=== PATIENT | male | born 1975 | race Caucasian/White ===

== ENCOUNTER 2016-10-07 07:04 | Day surgery (SDC) | payer BC, OTHER ==
[2016-09-30 16:02] VITALS: BMI 43.2
[~2016-10-07 07:04] MED LIST: DEXAMETHASONE SOD PHOSPHATE 10 MG/ML 1 ML VIAL IV ONE; FAMOTIDINE 20 MG/2 ML VIAL IV PRN; HEPARIN SODIUM,PORCINE 5,000 UNIT/ML 1 ML VIAL SQ ONE; HYDROmorphone 1 MG/ML 1 ML SYRINGE IVP PRN; LACTATED RINGERS 1,000 ML IV SCH; MIDAZOLAM 2 MG/2 ML VIAL IV PRN; Pre Op ABX Message 1 EACH MISC MISCELLANE ONE
[2016-10-07] MEDS ORDERED: LIDOCAINE 1% 20 ML VIAL (10MG/ML) FOR IV START INTRADERMA ONE (07:25)
--- NOTE | 2016-10-07 08:05 | P.GSHP ---
History of Present Illness H&P Date: 10/07/16 Chief Complaint: Scalp lipoma Patient presents today for excision of lipoma. Having mild discomfort in that area. It is been there for numerous years is been getting larger and he has mild headaches he believes at times related to this. A CAT scan showed what appeared to represent a lipoma. Past Medical History Past Medical History: Asthma, GERD/Reflux, Hyperlipidemia, Hypertension, Osteoarthritis (OA), Sleep Apnea/CPAP/BIPAP Additional Past Medical History / Comment(s): DDD, getting CPAP soon History of Any Multi-Drug Resistant Organisms: None Reported Past Surgical History: Adenoidectomy Past Anesthesia/Blood Transfusion Reactions: No Reported Reaction Past Psychological History: Anxiety Smoking Status: Current every day smoker Past Alcohol Use History: None Reported Additional Past Alcohol Use History / Comment(s): 1ppd for 20 yrs. Past Drug Use History: None Reported - Past Family History Mother Family Medical History: No Reported History Medications and Allergies Home Medications Medication Instructions Recorded Confirmed Type Ascorbic Acid [Vitamin C] 500 mg PO DAILY 09/30/16 09/30/16 History Atorvastatin [Lipitor] 40 mg PO HS 09/30/16 09/30/16 History Escitalopram [Lexapro] 20 mg PO HS 09/30/16 09/30/16 History Ibuprofen [Advil] 200 mg PO Q6HR PRN 09/30/16 09/30/16 History Metoprolol Succinate (ER) [Toprol 50 mg PO DAILY 09/30/16 09/30/16 History Xl] Multivitamin [Men's Multi-Vitamin] 1 each PO DAILY 09/30/16 09/30/16 History Omeprazole 20 mg PO BID 09/30/16 09/30/16 History Allergies Allergy/AdvReac Type Severity Reaction Status Date / Time No Known Allergies Allergy Verified 10/07/16 07:22 Surgical - Exam Vital Signs Temp Pulse Resp BP Pulse Ox 97.0 F L 90 16 147/95 96 10/07/16 07:21 10/07/16 07:21 10/07/16 07:21 10/07/16 07:21 10/07/16 07:21 Physical exam: General: Well-developed, well-nourished HEENT: 4-5 cm subcutaneous soft fleshy mass in the left parietal region, sclerae nonicteric Abdomen: Nontender, nondistended Extremities: No edema Neuro: Alert and oriented Assessment and Plan (1) Lipoma of scalp Narrative/Plan: Proceed with surgical excision of a lipoma. The risks of bleeding, infection, recurrence, other etiologies for the mass were discussed with the patient and his family. He understands and wished to proceed. Status: Acute
[2016-10-07] MEDS ORDERED: ONDANSETRON 4 MG/2 ML VIAL ONE (08:22)
[2016-10-07] MEDS ORDERED: SUCCINYLCHOLINE CHLORIDE VIAL 200 MG/10 ML VIAL IV ONE (08:22)
[2016-10-07] MEDS ORDERED: PROPOFOL 10 MG/ML 20 ML VIAL IV ONE (08:22)
[2016-10-07] MEDS ORDERED: LIDOCAINE 1% INJ 10MG/ML (20 ML MDV) ONE (08:22)
[2016-10-07] MEDS ORDERED: MIDAZOLAM 2 MG/2 ML VIAL ONE (08:22)
[2016-10-07] MEDS ORDERED: fentaNYL (PF) 50 MCG/ML 2 ML AMP ONE (08:22)
[2016-10-07] MEDS ORDERED: BUPIVACAIN-EPI 0.25%-1:200,000 30 ML VIAL SQ ONE ×2 (08:39→08:51)
[2016-10-07] MEDS ORDERED: LACTATED RINGERS 1,000 ML IV ONE (08:52)
[2016-10-07] MEDS ORDERED: BACITRACIN OINT 1 EACH PACKET TOPICAL ONE (08:58)
[2016-10-07 09:16] VITALS: TEMP 97.8
[2016-10-07] MEDS ORDERED: HYDROcodone/APAP 5-325MG 1 EACH TAB PO PRN (09:29)
[2016-10-07] MEDS ORDERED: NALOXONE 0.4 MG/ML 1 ML VIAL IV PRN (09:29)
[2016-10-07 09:31] VITALS: RESP 16
--- NOTE | 2016-10-07 09:32 | P.OP ---
Date of Procedure: 10/07/16 Procedure(s) Performed: PREOPERATIVE DIAGNOSIS: Left scalp lipoma POSTOPERATIVE DIAGNOSIS: Same PROCEDURE: Excision SURGEON: Alan EBL: 20 mL ANESTHESIA: Gen. COMPLICATIONS: None OPERATIVE PROCEDURE: Patient placed in the supine position. The left scalp in the posterior parietal/occipital region and draped in usual sterile fashion. An elliptical incision was made excising a portion of skin overlying the lipomatous mass. The subcutaneous tissues were divided using electrocautery. The lipoma was in the subfascial location. Was excised bluntly. This measured 6 x 5 cm. The cutaneous tissues were closed using 3-0 Vicryl sutures. The skin was closed using a running 4-0 nylon stitch. Sterile dressings were applied. DISPOSITION: Stable to recovery room
[2016-10-07] MEDS ORDERED: HYDROcodone/APAP 5-325MG 1 EACH TAB PO ONE (10:04)
[2016-10-07 10:30] VITALS: BP 109/70; PULSE 91
== END 2016-10-07 10:44 | disposition home or self-care (01) ==
LOC: OR 07:04
PROVIDERS: ATTEND Surgery
DX: D17.0 Benign lipomatous neoplasm of skin and subcutaneous tissue of head, face and neck (principal); K21.9 Gastro-esophageal reflux disease without esophagitis; E78.5 Hyperlipidemia, unspecified; I10 Essential (primary) hypertension; M19.90 Unspecified osteoarthritis, unspecified site; G47.33 Obstructive sleep apnea (adult) (pediatric); F32.9 Major depressive disorder, single episode, unspecified; F41.9 Anxiety disorder, unspecified; F17.200 Nicotine dependence, unspecified, uncomplicated; Z79.899 Other long term (current) drug therapy; J45.909 Unspecified asthma, uncomplicated
CPT/HCPCS: 11426; 12032; 88304; J2250; J0330; J1644; J1100; J2405; J2001; J3010; J2704

== ENCOUNTER 2022-10-17 03:58 | Inpatient (IN) | payer OTHER ==
--- NOTE | 2022-10-17 04:02 | ED ---
Chest Pain HPI - General Stated Complaint: chest pain Time Seen by Provider: 10/17/22 04:02 Source: RN notes reviewed, old records reviewed Limitations: no limitations - History of Present Illness Initial Comments: This is a 47-year-old male to the emergency department for evaluation. Patient presents today for evaluation of chest pain. History of high blood pressure cholesterol. No travel history sick contacts. History of severely hyaline blood pressure with family history of heart disease. Patient coming in with chest pain type symptoms that woke him up from sleep today. He states he got up trying to help her on the house with the baby and began to have some severe tightness in his chest heaviness in his chest up into his chest into his back. Patient 71 chest pain currently here in the emergency room heaviness in the emergency room. Patient was also sweaty and symptoms short of breath prior to arrival. MD Complaint: chest pain -: minutes(s) Onset: during rest, awoke with symptoms Pain Location: substernal Pain Radiation: none Severity: moderate Severity scale (1-10): 6 Quality: tightness Consistency: constant Improves With: nothing Worsens With: nothing Anginal Symptoms: sense of impending doom Other Symptoms: palpitations Treatments Prior to Arrival: none - Related Data Home Medications Medication Instructions Recorded Confirmed Ascorbic Acid [Vitamin C] 500 mg PO DAILY 09/30/16 09/30/16 Atorvastatin [Lipitor] 40 mg PO HS 09/30/16 09/30/16 Escitalopram [Lexapro] 20 mg PO HS 09/30/16 09/30/16 Ibuprofen [Advil] 200 mg PO Q6HR PRN 09/30/16 09/30/16 Metoprolol Succinate (ER) [Toprol 50 mg PO DAILY 09/30/16 09/30/16 Xl] Multivitamin [Men's Multi-Vitamin] 1 each PO DAILY 09/30/16 09/30/16 Omeprazole 20 mg PO BID 09/30/16 09/30/16 Previous Rx's Medication Instructions Recorded Hydrocodone/Acetaminophen [[place] 1 - 2 each PO Q4HR PRN #20 tab 10/07/16 5-325] Allergies Allergy/AdvReac Type Severity Reaction Status Date / Time No Known Allergies Allergy Verified 10/07/16 07:22 Review of Systems ROS Statement: Those systems with pertinent positive or pertinent negative responses have been documented in the HPI. ROS Other: All systems not noted in ROS Statement are negative. EKG Findings - EKG Comments: EKG Findings:: EKG shows sinus rhythm rate of 84 ND 158 QRS 92 QTC 403, EKG is positive for ST elevated MD Past Medical History Past Medical History: Asthma, GERD/Reflux, Hyperlipidemia, Hypertension, Osteoarthritis (OA), Sleep Apnea/CPAP/BIPAP Additional Past Medical History / Comment(s): DDD, getting CPAP soon History of Any Multi-Drug Resistant Organisms: None Reported Past Surgical History: Adenoidectomy Past Anesthesia/Blood Transfusion Reactions: No Reported Reaction Past Psychological History: Anxiety Past Alcohol Use History: None Reported Additional Past Alcohol Use History / Comment(s): 1ppd for 20 yrs. Past Drug Use History: None Reported - Past Family History Mother Family Medical History: No Reported History General Exam General appearance: alert, in no apparent distress, anxious Head exam: Present: atraumatic, normocephalic, normal inspection Eye exam: Present: normal appearance, PERRL, EOMI. Absent: scleral icterus, conjunctival injection, periorbital swelling ENT exam: Present: normal exam, mucous membranes moist Neck exam: Present: normal inspection. Absent: tenderness, meningismus, lymphadenopathy Respiratory exam: Present: normal lung sounds bilaterally. Absent: respiratory distress, wheezes, rales, rhonchi, stridor Cardiovascular Exam: Present: regular rate, normal rhythm, normal heart sounds. Absent: systolic murmur, diastolic murmur, rubs, gallop, clicks GI/Abdominal exam: Present: soft, normal bowel sounds. Absent: distended, tenderness, guarding, rebound, rigid Extremities exam: Present: normal inspection, full ROM, normal capillary refill. Absent: tenderness, pedal edema, joint swelling, calf tenderness Back exam: Present: normal inspection Neurological exam: Present: alert, oriented X3, CN II-XII intact Psychiatric exam: Present: normal affect, normal mood Skin exam: Present: warm, dry, intact, normal color. Absent: rash Course Vital Signs 10/17/22 04:02 Temperature 98.3 F Pulse Rate 82 Respiratory 14 Rate Blood Pressure 179/100 O2 Sat by Pulse 98 Oximetry - Reevaluation(s) Reevaluation #1: 10/17/22 04:13 Medical record is reviewed 10/17/22 04:23 STEMI was paged upon EKGs evaluation Reevaluation #2: 10/17/22 04:23 Patient still chest pain throughout ER stay Reevaluation #3: 10/17/22 04:23 Patient informed results questions answered Reevaluation #4: 10/17/22 04:13 Differential Chest Pain: Stable Angina, Unstable Angina, STEMI, NSTEMI Aortic Dissection, Pneumothorax, Musculoskeletal, Esophageal Spasm GERD, Cholecystitis, Pancreatitis, Zoster, this is not meant to be an all-inclusive list. Reevaluation #5: 10/17/22 04:13 Was pt. sent in by a medical professional or institution? @ -non Did you speak to anyone other than the patient for history? @ 0wife Did you review nursing and triage notes? @ -agree Were old charts reviewed? @ -no Differential Diagnosis? @ -prior EKG interpreted by me (3pts min.)? @ -yes X-rays interpreted by me (1pt min.)? @ -yes CT interpreted by me (1pt min.)? @ -[none] U/S interpreted by me (1pt. min.)? @ -[none] What testing was considered but not performed? (CT, X-rays, U/S, labs)? Why? @ no What meds were considered but not given? Why? @ -[none] Did you discuss the management of the patient with other professionals? @ -no Did you reconcile home meds? @ -[none] Was smoking cessation discussed for >3mins.? @ -[none] Was critical care preformed (if so, how long)? @ -yes Were there social determinants of health that impacted care today? How? (Homelessness, low income, unemployed, alcoholism, drug addiction, transportation, low edu. Level, literacy, decrease access to med. care, [facility], rehab)? @ -no Was there de-escalation of care discussed even if they declined? (Discuss DNR or withdrawal of care, Hospice)? @ -no What co-morbidities impacted this encounter? (DM, HTN, Smoking, COPD, CAD, Cancer, CVA, Hep., AIDS, mental health diagnosis, sleep apnea, morbid obesity)? @ -no Was patient admitted / discharged? @ -admit Undiagnosed new problem with uncertain prognosis? @ -[none] Drug Therapy requiring intensive monitoring for toxicity (Heparin, Nitro, Insulin, Cardizem)? @ -[none] Were any procedures done? @ -[none] Diagnosis/symptom? @ -[default] Acute, or Chronic, or Acute on Chronic? @ -[default] Uncomplicated (without systemic symptoms) or Complicated (systemic symptoms)? @ -[default] Side effects of treatment? @ -[none] Exacerbation, Progression, or Severe Exacerbation] @ -[no] Poses a threat to life or bodily function? @ -yes 10/17/22 04:23 - Consultations Consultation #1: Spoke with cardiology on-call aware of ST elevation MD Consultation #2: Spoke with Dr. Acosta who will admit this patient Chest Pain MDM - MDM 47 male DF for evaluation positive for chest pain family history of heart disease high blood pressure and high cholesterol. No prior chest pain evaluation. Patient presents with chest pain that woke him up from sleep EKG positive for ST elevated MD. Critical Care Time Critical Care Time: Yes Total Critical Care Time: 31 Disposition Clinical Impression: ST elevation myocardial infarction (STEMI), Chest pain Disposition: ADMITTED IP TO THIS HOSP Condition: Serious Is patient prescribed a controlled substance at d/c from ED?: No Referrals: Jean Carlos Acosta Jr, [Primary Care Provider] - 1-2 days Time of Disposition: 04:20
[2022-10-17] MEDS ORDERED: ASPIRIN 81 MG PO STA (04:19)
[2022-10-17] MEDS ORDERED: HEPARIN SODIUM 1,000 UN/ML (10ML VL) IV ONE ×2 (04:19→05:24)
[2022-10-17 04:22] LABS: Basophils # (A) 0.1 k/uL (0-0.2); Basophils % (A) 1 %; Eosinophils # (A) 0.4 k/uL (0-0.7); Eosinophils % (A) 5 %; HCT 41.7 % (39.0-53.0); HGB 15.1 gm/dL (13.0-17.5); Lymphocytes # (A) 2.8 k/uL (1.0-4.8); Lymphocytes % (A) 31 %; MCH 32.5 pg (25.0-35.0); MCHC 36.2 g/dL (31.0-37.0); MCV 89.8 fL (80.0-100.0); Monocytes # (A) 0.4 k/uL (0-1.0); Monocytes % (A) 4 %; Neutrophils # (A) 5.1 k/uL (1.3-7.7); Neutrophils % (A) 57 %; Platelet Count 234 k/uL (150-450); RBC 4.65 m/uL (4.30-5.90); RDW 12.4 % (11.5-15.5); WBC 8.9 k/uL (3.8-10.6)
[2022-10-17] MEDS: HEPARIN SOD,PORK IN 0.45% NACL 25,000 UNIT in 0.45% NACL 1 250ML.BAG IV SCH (04:29)
[2022-10-17 04:30] LABS: INR 0.9 (<1.2); Partial Thromboplastin Time 23.2 sec (22.0-30.0); Prothrombin Time 9.7 sec (9.0-12.0)
[2022-10-17 04:32] LABS: ALT 32 U/L (4-49); AST 24 U/L (17-59); African American GFR (CKD) >90 (>60 ml/min/1.73 sqM); Albumin 4.2 g/dL (3.5-5.0); Alkaline Phosphatase 110 U/L (38-126); Anion Gap 9 mmol/L; Blood Urea Nitrogen 22 mg/dL (9-20); Calcium 9.4 mg/dL (8.4-10.2); Carbon Dioxide 25 mmol/L (22-30); Chloride 106 mmol/L (98-107); Glucose 133 mg/dL (74-99); Lipase 76 U/L (23-300); Magnesium 1.8 mg/dL (1.6-2.3); Non-African American GFR(CKD) >90 (>60 ml/min/1.73 sqM); Potassium 3.4 mmol/L (3.5-5.1); Sodium 140 mmol/L (137-145); Total Bilirubin 0.3 mg/dL (0.2-1.3); Total Protein 7.1 g/dL (6.3-8.2)
--- NOTE | 2022-10-17 04:40 | XR ---
EXAMINATION TYPE: XR chest 1V portable DATE OF EXAM: 10/17/2022 COMPARISON: NONE HISTORY: Chest pain TECHNIQUE: 2 views FINDINGS: Heart size is normal. There is some mild infiltrate at the left lung base. No hilar masses. Mediasti num is normal. The right lung is clear. There are chest leads. IMPRESSION: There is some mild infiltrate and atelectasis left lung base. No heart failure seen.
--- NOTE | 2022-10-17 04:53 | P.CRDCN ---
History of Present Illness History of present illness: HISTORY OF PRESENTING ILLNESS This is a pleasant 42-year-old with past medical history significant for hypertension, tobacco abuse, occasional alcohol use and family history of CAD. 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 He has never had significant chest pain however proximally 2 hours prior to arrival started having chest discomfort. Denies associated nausea, diaphoresis or shortness breath. The pain persisted and therefore can't emergency department. EKG shows ST elevation V2 through the V4. DIAGNOSTICS EKG reveals sinus rhythm, normal axis, ST elevation V2 through V4. Laboratory reviewed, white blood cell count 8.9, the hemoglobin 15.1, potassium 3.4, creatinine 0.9 REVIEW OF SYSTEMS At the time of my exam: CONSTITUTIONAL: Denies fever or chills. CARDIOVASCULAR: +chest pain, no shortness of breath, orthopnea, PND or palpitations. RESPIRATORY: Denies cough. GASTROINTESTINAL: Denies abdominal pain, diarrhea, constipation, nausea or vomiting. MUSCULOSKELETAL: Denies myalgias. NEUROLOGIC: Denies numbness, tingling or weakness. ENDOCRINE: Denies fatigue, weight change, polydipsia or polyurina. GENITOURINARY: Denies burning, hematuria or urgency with micturation. HEMATOLOGIC: Denies history of anemia or bleeding. PHYSICAL EXAMINATION Vital signs reviewed. CONSTITUTIONAL: No apparent distress. HEENT: Head is normocephalic. Pupils are equal, round. Sclerae anicteric. Mucous membranes of the mouth are moist. No JVD. No carotid bruit. CHEST EXAMINATION: Lungs are clear to auscultation. No chest wall tenderness is noted on palpation or with deep breathing. HEART EXAMINATION: Regular rate and rhythm. S1, S2 heard. No murmurs, gallops or rub. ABDOMEN: Soft, nontender. Positive bowel sounds. EXTREMITIES: 2+ peripheral pulses, no lower extremity edema and no calf tenderness. NEUROLOGIC EXAMINATION: Patient is awake, alert and oriented x3. ASSESSMENT 1. Anterior STEMI 2. Tobacco abuse 3. Hypertension 4. Hyperlipidemia 5. Occasional alcohol use 6. Family history of CAD PLAN Discussed recommendations for emergency left heart catheterization and patient is agreeable. Aspirin, heparin, statin, beta simone as tolerated. Check 2-D echo. Further recommendations to follow. Past Medical History Past Medical History: Asthma, GERD/Reflux, Hyperlipidemia, Hypertension, Osteoarthritis (OA), Sleep Apnea/CPAP/BIPAP Additional Past Medical History / Comment(s): DDD, getting CPAP soon History of Any Multi-Drug Resistant Organisms: None Reported Past Surgical History: Adenoidectomy Past Anesthesia/Blood Transfusion Reactions: No Reported Reaction Past Psychological History: Anxiety Past Alcohol Use History: None Reported Additional Past Alcohol Use History / Comment(s): 1ppd for 20 yrs. Past Drug Use History: None Reported - Past Family History Mother Family Medical History: No Reported History Medications and Allergies Home Medications Medication Instructions Recorded Confirmed Type Ascorbic Acid [Vitamin C] 500 mg PO DAILY 09/30/16 09/30/16 History Atorvastatin [Lipitor] 40 mg PO HS 09/30/16 09/30/16 History Escitalopram [Lexapro] 20 mg PO HS 09/30/16 09/30/16 History Ibuprofen [Advil] 200 mg PO Q6HR PRN 09/30/16 09/30/16 History Metoprolol Succinate (ER) [Toprol 50 mg PO DAILY 09/30/16 09/30/16 History Xl] Multivitamin [Men's Multi-Vitamin] 1 each PO DAILY 09/30/16 09/30/16 History Omeprazole 20 mg PO BID 09/30/16 09/30/16 History Hydrocodone/Acetaminophen [[place] 1 - 2 each PO Q4HR PRN #20 tab 10/07/16 Rx 5-325] Allergies Allergy/AdvReac Type Severity Reaction Status Date / Time No Known Allergies Allergy Verified 10/07/16 07:22 Physical Exam Vitals: Vital Signs Temp Pulse Resp BP Pulse Ox 10/17/22 04:02 98.3 F 82 14 179/100 98 Intake and Output 10/16/22 10/16/22 10/17/22 14:59 22:59 06:59 Other: Weight 115.666 kg Results 10/17/22 04:10 10/17/22 04:10 Cardiac Enzymes 10/17/22 Range/Units 04:10 AST 24 (17-59) U/L Coagulation 10/17/22 Range/Units 04:10 PT 9.7 (9.0-12.0) sec APTT 23.2 (22.0-30.0) sec CBC 10/17/22 Range/Units 04:10 WBC 8.9 (3.8-10.6) k/uL RBC 4.65 (4.30-5.90) m/uL Hgb 15.1 (13.0-17.5) gm/dL Hct 41.7 (39.0-53.0) % Plt Count 234 (150-450) k/uL Comprehensive Metabolic Panel 10/17/22 Range/Units 04:10 Sodium 140 (137-145) mmol/L Potassium 3.4 L (3.5-5.1) mmol/L Chloride 106 (98-107) mmol/L Carbon Dioxide 25 (22-30) mmol/L BUN 22 H (9-20) mg/dL Creatinine 0.98 (0.66-1.25) mg/dL Glucose 133 H (74-99) mg/dL Calcium 9.4 (8.4-10.2) mg/dL AST 24 (17-59) U/L ALT 32 (4-49) U/L Alkaline Phosphatase 110 (38-126) U/L Total Protein 7.1 (6.3-8.2) g/dL Albumin 4.2 (3.5-5.0) g/dL Current Medications Generic Name Dose Route Start Last Admin Trade Name Freq PRN Reason Stop Dose Admin Aspirin 325 mg 10/18/22 09:00 Aspirin 325 Mg Tab PO DAILY [facility] Atorvastatin Calcium 80 mg 10/17/22 09:00 Atorvastatin 80 Mg Tab PO DAILY [facility] Heparin Sodium/Sodium Chloride 250 mls @ 10 mls/hr 10/17/22 04:30 10/17/22 04:29 25,000 unit/ Sodium Chloride IV 8.6456 units/kg/hr .Q24H MIREYA 10 mls/hr Administration Protocol 8.6456 UNITS/KG/HR Morphine Sulfate 4 mg 10/17/22 04:19 Morphine Sulfate 4 Mg/Ml Syringe IV Q4HR PRN Chest Pain Intake and Output 10/16/22 10/16/22 10/17/22 14:59 22:59 06:59 Other: Weight 115.666 kg Patient Weight 10/17/22 06:59 Weight 115.666 kg 10/17/22 04:10 10/17/22 04:10
[2022-10-17] MEDS ORDERED: NITROGLYCERIN SL TABS 0.4 MG TAB SUBLINGUAL ONE (04:54)
[2022-10-17] MEDS ORDERED: VERAPAMIL 2.5 MG/ML 2 ML AMP ONE (04:57)
[2022-10-17] MEDS ORDERED: fentaNYL (PF) 50 MCG/ML 2 ML AMP ONE (04:57)
[2022-10-17] MEDS ORDERED: LIDOCAINE 2% (PF) 20 MG/ML 5 ML VIAL SQ ONE (05:00)
[2022-10-17] MEDS ORDERED: fentaNYL (PF) 50 MCG/ML 2 ML AMP IV ONE (05:01)
[2022-10-17] MEDS ORDERED: MIDAZOLAM 2 MG/2 ML VIAL IV ONE (05:01)
[2022-10-17] MEDS ORDERED: VERAPAMIL SYRINGE (5 MG/10 ML) INTRAARTER ONE (05:02)
[2022-10-17] MEDS ORDERED: HEPARIN SODIUM 1,000 UN/ML (10ML VL) ONE (05:05)
[2022-10-17] MEDS: HEPARIN SODIUM 1,000 UN/ML (10ML VL) IV ONE ×3 (05:07→05:35)
[2022-10-17] MEDS ORDERED: PRASUGREL 10 MG TAB ONE (05:12)
[2022-10-17] MEDS ORDERED: PRASUGREL 10 MG TAB PO ONE (05:14)
[2022-10-17] MEDS ORDERED: SODIUM CHLORIDE 0.9% 1,000 ML IV ONE (05:14)
[2022-10-17] MEDS ORDERED: NITROGLYCERIN 1000MCG/10ML SYRINGE INTRACORON ONE ×2 (05:16→05:30)
[2022-10-17] MEDS ORDERED: IOPAMIDOL-370 125ML BTL INJ ONE (05:23)
[2022-10-17] MEDS ORDERED: IOPAMIDOL-370 100ML BTL INJ ONE ×2 (05:27→05:35)
[2022-10-17] MEDS ORDERED: NITROGLYCERIN SL TABS 0.4 MG TAB SUBLINGUAL PRN (05:53)
[2022-10-17] MEDS ORDERED: ATROPINE SULFATE 0.1 MG/ML 10ML SYRINGE IV PRN (05:53)
[2022-10-17] MEDS ORDERED: MAG HYDROX/AL HYDROX/SIMETH 30 ML CUP PO PRN (05:53)
[2022-10-17] MEDS ORDERED: ZOLPIDEM 5 MG TAB PO PRN (05:53)
[2022-10-17] MEDS ORDERED: RX INFO: IV CONTRAST WAS GIVEN 1 EACH MISC MISCELLANE PRN (05:53)
--- NOTE | 2022-10-17 05:53 | P.PRCINT ---
Percutaneous Coronary Int. - Percutaneous Coronary Intervention Percutaneous Coronary Intervention: PROCEDURES PERFORMED: Left heart catheterization, bilateral coronary angiography, PCI mid LAD with 3.0 x 15 mm (post dilated with a 4.0 NC balloon) and 2.75 x 15 mm Xience ISSA INDICATION: Anterior STEMI CONSENT:I have discussed the risks, benefits and alternative therapies for the above-mentioned procedure and for both sedation/analgesia as well as necessary blood product administration, if indicated, as they pertain to this patient. The patient has indicated understanding and acceptance of the risks and procedures discussed. PROCEDURE: After the risks, benefits and alternatives of the above mentioned procedure explained in detail with the patient, informed consent was obtained. Patient was taken to the catheterization lab and prepped and draped in usual fashion. 1% lidocaine was used to anesthetize the right radial artery. A 6- Ukrainian sheath was placed in the right radial artery using modified Seldinger technique. Left coronary angiography was performed with a 6-Ukrainian CLS 3.5 guide. The decision was made to perform PCI of the LAD. A 0.014 BMW wire was advanced in the distal LAD. LAD did not reach the apex with apex being supplied by the PDA. Heparin was given for ACT greater than 250. Balloon angioplasty of the 100% lesion was performed with a 2.5 x 12 mm balloon. Next a 2.75 x 15 mm Xience ISSA was placed in the mid to distal LAD. There was still ongoing EKG changes with chest pain and therefore the decision was made to perform PCI of the more proximal 85% lesion at the level of the diagonal 1 branch. This was predilated with a 3.0 x 12 mm noncompliant balloon. Next a 3.0 x 15mm Xience was placed at the mid LAD jailing the moderate caliber diagonal 1 branch. The proximal portion of the stent was postdilated with a 4.0 x 8 mm noncompliant balloon. The wire was pulled and final angiograms were performed. Preintervention there was 85% mid LAD and 100% mid to distal LAD stenosis with ANNA 0 flow and postintervention there was less than 10% stenosis with ANNA 3 flow. Right coronary angiography was performed with a 5-Ukrainian JR5 catheter in various views. A 5-Ukrainian FR5 catheter was inserted into the left ventricle and pressure measurements were obtained. The right radial sheath was removed and a TR band was placed with hemostasis achieved. The patient tolerated the procedure well. Patient was transported back to the post catheterization holding area in stable condition. Conscious Sedation: Patient was monitored under the direct supervision of vision of myself for conscious sedation using Versed and fentanyl for a total duration of 49 minutes HEMODYNAMICS: Aorta: 127/90 LV: 124/15, LVEDP 24 SELECTIVE CORONARY ARTERIOGRAPHY: LEFT MAIN: The left main is a large caliber vessel which bifurcates into the LAD and circumflex. There is no significant stenosis. LEFT ANTERIOR DESCENDING CORONARY ARTERY: LAD is a large caliber vessel which comes short of the apex and apex supplied by the PDA. There is an 85% stenosis of the mid LAD at the level of the diagonal 1 branch and 100% stenosis of the mid to distal LAD. The distal LAD becomes a small vessel before the apex. LEFT CIRCUMFLEX CORONARY ARTERY: Left circumflex is a moderate caliber vessel without significant stenosis. RIGHT CORONARY ARTERY: The right coronary artery is a large caliber vessel which gives off a PDA and PLV branch and is the dominant vessel. There are mild luminal irregularities. FINAL IMPRESSION: 1. CAD as described above including 85% mid LAD, 100% mid to distal LAD stenosis and otherwise mild luminal irregularities 2. S/p PCI mid LAD with 3.0 x 15 mm (post dilated with a 4.0 NC balloon) and 2.75 x 15 mm Xience ISSA 3. Normal left sided filling pressures PLAN: 1. Aggressive risk factor modification per most recent ACC/AHA guidelines. 2. Continue dual antiplatelets with aspirin and Effient for a total of 12 months 3. Tobacco cessation
[2022-10-17 06:15] LABS: Glucose,Whole Blood 141 mg/dL (70-110)
[2022-10-17] MEDS: SODIUM CHLORIDE 0.9% 1,000 ML in EMPTY BAG 1 BAG IV SCH ×2 (06:45→14:03)
[2022-10-17] MEDS ORDERED: Potassium Replacement Protocol 1 EACH MISC MISCELLANE PRN (08:45)
[2022-10-17] MEDS: POTASSIUM CHLORIDE ER 20 MEQ TAB.ER PO SCH ×2 (10:01→12:08)
[2022-10-17] MEDS: ATORVASTATIN 80 MG TAB PO SCH (10:02)
[2022-10-17] MEDS: METOPROLOL SUCCINATE (ER) 25 MG TAB.ER.24H PO SCH (10:02)
[2022-10-17] MEDS: ASPIRIN 81 MG PO SCH (10:02)
[2022-10-17] MEDS: MORPHINE SULFATE 4 MG/ML SYRINGE IV PRN ×3 (10:03→18:46)
[2022-10-17] MEDS: LOSARTAN 25 MG TAB PO SCH (10:10)
--- NOTE | 2022-10-17 12:18 | PN ---
PROGRESS NOTE SUBJECTIVE: This is a 47-year-old gentleman, who is admitted to hospital with acute anterior wall myocardial infarction, was seen by Dr. Moss, and underwent emergent cardiac catheterization and angioplasty of mid LAD. At the time of my evaluation this morning, he appears comfortable at rest and is free of symptoms. He is on aspirin, Lipitor, Toprol, and Effient. OBJECTIVE: GENERAL: Comfortable at rest. VITAL SIGNS: Stable. CHEST: Reveals good air entry bilaterally. HEART: Reveals first and second heart sounds. No gallop. No murmur. Radial artery access site appears normal. CHEST: Reveals good air entry bilaterally. ABDOMEN: Soft. EXTREMITIES: Did not reveal any edema. Peripheral pulses are felt. LABORATORY DATA: Labs show a hemoglobin of 15, platelet count is 230, potassium is 3.4, creatinine is 0.98. Troponin was negative on his initial presentation. BNP is normal. ASSESSMENT: 1. Acute anterior wall myocardial infarction. 2. History of hypertension. PLAN: I will treat the patient with aspirin, Lipitor, Effient, beta simone, obtain a 2D echo, subcu heparin. He will be in the ICU and will be transferred out tomorrow. We will have an echo done. MMODL / IJN: [id number] /
--- NOTE | 2022-10-17 13:28 | CA ---
Transthoracic Echo Report Name: Lincoln Parsons Age: 47 Gender: M : 1975 Exam Date: 10/17/2022 08:11 Exam Location: [facility] Ht (in): 69 Wt (lb): 243 Ordering Physician: Juan Carlos Moss DO ([email or web address]) Attending/Referring Phys: Non Profit Financial Controller Jesica Gomez RDCS Procedure CPT: Indications: re: STEMI Cardiac Hx: Obesity. Technical Quality: Contrast 1: Total Dose (mL): Contrast 2: Total Dose (mL): MEASUREMENTS (Male / Female) Normal Values 2D ECHO LV Diastolic Diameter PLAX 4.9 cm 4.2 - 5.9 / 3.9 - 5.3 cm LV Systolic Diameter PLAX 4.6 cm IVS Diastolic Thickness 1.1 cm 0.6 - 1.0 / 0.6 - 0.9 cm LVPW Diastolic Thickness 1.3 cm 0.6 - 1.0 / 0.6 - 0.9 cm LV Relative Wall Thickness 0.5 RV Internal Dim ED PLAX 3.8 cm LA Systolic Diameter LX 3.2 cm 3.0 - 4.0 / 2.7 - 3.8 cm LV Diastolic Volume MOD BP 78.3 cm??? 67 - 155 / 56 - 104 cm??? LV Systolic Volume MOD BP 40.7 cm??? 22 - 58 / 19 - 49 cm??? LV Ejection Fraction MOD BP 48.0 % >= 55 % LV Diastolic Volume MOD 4C 70.6 cm??? LV Systolic Volume MOD 4C 33.5 cm??? LV Ejection Fraction MOD 4C 52.6 % LV Diastolic Length 4C 8.4 cm LV Systolic Length 4C 7.6 cm LV Diastolic Volume MOD 2C 81.8 cm??? LV Systolic Volume MOD 2C 46.1 cm??? LV Ejection Fraction MOD 2C 43.6 % LV Diastolic Length 2C 9.1 cm LV Systolic Length 2C 8.3 cm LA Volume 46.5 cm??? 18 - 58 / 22 - 52 cm??? M-MODE Aortic Root Diameter MM 3.6 cm LA Systolic Diameter MM 3.1 cm LA Ao Ratio MM 0.8 MV E Point Septal Separation 0.2 cm DOPPLER MV E' Velocity 5.2 cm/s TR Peak Velocity 100.8 cm/s TR Peak Gradient 4.1 mmHg Right Ventricular Systolic Press 9.1 mmHg FINDINGS Left Ventricle Mildly increased septal wall thickness. Mildly decreased left ventricular ejection fraction. Left ventricular ejection fraction is estimated at 55 %. Distal Septal hypokinesis. Right Ventricle Normal right ventricular size and function. Right ventricular systolic pressure within normal limits. Right Atrium Normal right atrial size. Left Atrium Normal left atrial size. Mitral Valve Structurally normal mitral valve. Aortic Valve Trileaflet aortic valve. Tricuspid Valve Structurally normal tricuspid valve. Pulmonic Valve Structurally normal pulmonic valve. Pericardium Normal pericardium. Aorta Normal size aortic root and proximal ascending aorta. CONCLUSIONS Normal LV systolic function with an ejection fraction of 55% with hypokinesis involving antral septum Previewed by: Dr. Ney Poole MD (Electronically Signed) Final Date: 17 October 2022 13:27
[2022-10-17 14:15] VITALS: BMI 37.6
--- NOTE | 2022-10-17 14:30 | P.HPIM ---
History of Present Illness H&P Date: 10/17/22 Chief Complaint: chest pain Patient presented to the emergency room at the behest of his partner who is a nurse in the emergency room at [facility] for chest pain, This patient was found to be having a myocardial infarction with ST elevation in the emergency room, he was admitted and sent to the cardiac [employer] where he underwent angioplasty with stent placement Review of Systems Constitutional: Reports as per HPI, Reports sweats, Reports weakness Ears, nose, mouth and throat: Reports as per HPI Cardiovascular: Reports as per HPI, Reports chest pain, Reports high blood pressure, Reports shortness of breath Respiratory: Reports congestion (Pack-a-day cigarette smoker) Gastrointestinal: Reports as per HPI Genitourinary: Reports as per HPI Musculoskeletal: Reports as per HPI Integumentary: Reports as per HPI Neurological: Reports as per HPI Psychiatric: Reports as per HPI Past Medical History Past Medical History: Asthma, GERD/Reflux, Hyperlipidemia, Hypertension, Osteoarthritis (OA), Sleep Apnea/CPAP/BIPAP Additional Past Medical History / Comment(s): DDD, getting CPAP soon History of Any Multi-Drug Resistant Organisms: None Reported Past Surgical History: Adenoidectomy Additional Past Surgical History / Comment(s): chest trauma with right chest tube 2018, heart cath Oct 2022 Past Anesthesia/Blood Transfusion Reactions: No Reported Reaction Date of Last Stent Placement:: Oct 2021 Past Psychological History: Anxiety Past Alcohol Use History: None Reported Additional Past Alcohol Use History / Comment(s): 1ppd for 20 yrs. Past Drug Use History: None Reported - Past Family History Mother Family Medical History: No Reported History Medications and Allergies Home Medications Medication Instructions Recorded Confirmed Type Albuterol Sulfate [Ventolin HFA] 1 puff INHALATION RT-Q4H PRN 10/17/22 10/17/22 History Aspirin EC [Ecotrin Low Dose] 81 mg PO DAILY 10/17/22 10/17/22 History Losartan Potassium 50 mg PO DAILY 10/17/22 10/17/22 History amLODIPine [Norvasc] 5 mg PO DAILY 10/17/22 10/17/22 History buPROPion XL [Wellbutrin XL] 150 mg PO DAILY 10/17/22 10/17/22 History clonazePAM [KlonoPIN] 0.5 mg PO HS PRN 10/17/22 10/17/22 History Allergies Allergy/AdvReac Type Severity Reaction Status Date / Time No Known Allergies Allergy Verified 10/17/22 12:10 Physical Exam Osteopathic Statement: *. No significant issues noted on an osteopathic structural exam other than those noted in the History and Physical/Consult. Vitals: Vital Signs Temp Pulse Resp BP Pulse Ox 10/17/22 11:00 82 20 136/97 96 10/17/22 10:00 24 138/89 96 10/17/22 09:00 84 14 136/86 97 10/17/22 08:00 97.7 F 95 15 124/85 97 10/17/22 07:30 85 15 133/93 96 10/17/22 07:15 98.4 F 84 21 128/92 96 10/17/22 06:25 15 10/17/22 06:23 98.4 F 10/17/22 04:02 98.3 F 82 14 179/100 98 Intake and Output 10/16/22 10/17/22 10/17/22 22:59 06:59 14:59 Intake Total 150 230.167 Output Total 450 Balance 150 -219.833 Intake: IV 150 200 Sodium Chloride 0.9% 1, 50 200 000 ml In Empty Bag 1 bag @ 50 mls/hr IV .Q20H MIREYA Rx#:[id number] Intake, IV Titration 30.167 Amount Heparin Sod,Pork in 0.45% 30.167 NaCl 25,000 unit In 0.45 % NaCl 1 250ml.bag @ 8. 6456 UNITS/KG/HR 10 mls/ hr IV .Q24H MIREYA Rx#: [id number] Output: Urine 450 Other: # Voids 1 Weight 115.666 kg General: [Patient awake, alert and oriented times 3. Patient in no acute distress.] HEENT: [PERRL. EOMI. No pharyngeal erythema or exudate.] Neck: [No adenopathy.] Cardiac: [Heart regular in rate and rhythm. No S3. No S4. No clicks, rubs. No murmur.] Lungs: [Clear to auscultation bilaterally.] Abdomen: [No mass. No organomegaly. Bowel sounds presnt and normoactive in all 4 quadrants.] Extremes: [No edema no cyanosis no claudication normal pulses] : [] Musculoskeletal: [No joint erythema, edema or tenderness.] Skin: [No rash.] Neurologic: [No lateralizing deficits. CN II - XII grossly intact.] Lymphatic: [No adenopathy.] Results CBC & Chem 7: 10/17/22 04:10 10/17/22 04:10 Labs: Abnormal Lab Results - Last 24 Hours (Table) 10/17/22 10/17/22 10/17/22 Range/Units 04:10 06:03 10:10 Potassium 3.4 L (3.5-5.1) mmol/L BUN 22 H (9-20) mg/dL Glucose 133 H (74-99) mg/dL POC Glucose (mg/dL) 141 H (70-110) mg/dL Troponin I 6.050 H* (0.000-0.034) ng/mL Thrombosis Risk Factor Assmnt - DVT/VTE Prophylaxis DVT/VTE Prophylaxis: Contraindicated - See note (Admitted with STEMI) - Choose All That Apply Each Factor Represents 1 point: Acute LA, Age 41-60 years Other Risk Factors: No Other congenital or acquired thrombophilia - If yes, enter type in comment: No Thrombosis Risk Factor Assessment Total Risk Factor Score: 2 Thrombosis Risk Factor Assessment Level: Low Risk Assessment and Plan (1) Chest pain Current Visit: Yes Status: Acute Code(s): R07.9 - CHEST PAIN, UNSPECIFIED SNOMED Code(s): 14765619 (2) ST elevation myocardial infarction (STEMI) Current Visit: Yes Status: Acute Code(s): I21.3 - ST ELEVATION (STEMI) MYOCARDIAL INFARCTION OF UNSP SITE SNOMED Code(s): 89818725 (3) Lipoma of scalp Current Visit: No Status: Acute Code(s): D17.0 - HILARY LIPOMATOUS NEOPLM OF SKIN, SUBCU OF HEAD, FACE AND NECK SNOMED Code(s): 37483843 Plan: Patient admitted to the hospital When directly to the cardiac [employer] Underwent percutaneous angioplasty with drug-eluting stent placement In the intensive care unit recovering well We'll reevaluate in the morning Time with Patient: Greater than 30
[2022-10-17] MEDS: clonazePAM 0.5 MG TAB PO PRN (20:27)
[2022-10-17] MEDS: HYDROcodone/APAP 5-325MG 1 EACH TAB PO PRN (20:30)
[2022-10-18] MEDS: HYDROcodone/APAP 5-325MG 1 EACH TAB PO PRN ×4 (01:32→20:20)
[2022-10-18] MEDS: HEPARIN SOD,PORK IN 0.45% NACL 25,000 UNIT in 0.45% NACL 1 250ML.BAG IV SCH (03:34)
[2022-10-18 06:03] LABS: HCT 41.2 % (39.0-53.0); HGB 14.5 gm/dL (13.0-17.5); MCH 31.7 pg (25.0-35.0); MCHC 35.1 g/dL (31.0-37.0); MCV 90.3 fL (80.0-100.0); Mean Platelet Volume 7.7; Platelet Count 245 k/uL (150-450); RBC 4.56 m/uL (4.30-5.90); RDW 12.3 % (11.5-15.5); WBC 12.2 k/uL (3.8-10.6)
[2022-10-18 06:14] LABS: African American GFR (CKD) >90 (>60 ml/min/1.73 sqM); Anion Gap 8 mmol/L; Blood Urea Nitrogen 13 mg/dL (9-20); Calcium 8.7 mg/dL (8.4-10.2); Carbon Dioxide 23 mmol/L (22-30); Chloride 105 mmol/L (98-107); Glucose 102 mg/dL (74-99); Non-African American GFR(CKD) >90 (>60 ml/min/1.73 sqM); Potassium 4.2 mmol/L (3.5-5.1); Sodium 136 mmol/L (137-145)
[2022-10-18] MEDS: LOSARTAN 25 MG TAB PO SCH (08:27)
[2022-10-18] MEDS: ATORVASTATIN 80 MG TAB PO SCH (08:27)
[2022-10-18] MEDS: ASPIRIN 81 MG PO SCH (08:27)
[2022-10-18] MEDS: PRASUGREL 10 MG TAB PO SCH (08:27)
[2022-10-18] MEDS: METOPROLOL SUCCINATE (ER) 25 MG TAB.ER.24H PO SCH (08:27)
[2022-10-18] MEDS ORDERED: ASPIRIN 325 MG TAB PO SCH (09:00)
[2022-10-18 09:27] LABS: Chol/HDL Ratio 6.92 Ratio; VLDL Calculation 215.8 mg/dL (5.00-40.00)
[2022-10-18 11:20] LABS: LDL Cholesterol,Direct Reflex 96.7 mg/dL (0.00-129.00)
[2022-10-18] MEDS: ISOSORBIDE MONONITRATE ER 30 MG TAB.ER.24H PO SCH (12:22)
--- NOTE | 2022-10-18 13:25 | PN ---
PROGRESS NOTE SUBJECTIVE: A 47-year-old gentleman, who was admitted to hospital with acute anterior wall myocardial infarction, underwent emergent cardiac catheterization and angioplasty of the LAD. He has a sharp atypical chest discomfort, but hemodynamically stable and he is doing well otherwise. EKG appears normal. He is currently on aspirin, Lipitor, Cozaar, and Toprol-XL along with Effient. An echocardiogram showed preserved LV function with septal hypokinesis. ASSESSMENT: Acute anterior wall myocardial infarction. PLAN: The patient is doing well. He will continue with current medications. Hopefully, the patient will be discharged home on Wednesday. I will add Imdur 30 mg daily. MMODL / IJN: [id number] /
--- NOTE | 2022-10-18 13:49 | P.PN ---
Subjective Progress Note Date: 10/18/22 Principal diagnosis: STEMI, chest pain Patient developed chest pain presented to the emergency room where he went directly to the cardiac field laboratory operator where he underwent percutaneous angioplasty with stent placement. This patient is awake alert oriented 3 vital signs stable patient is a afebrile Objective - Vital Signs Vital signs: Vital Signs Temp 98.0 F 10/18/22 12:00 Pulse 90 10/18/22 12:00 Resp 26 H 10/18/22 12:00 BP 150/102 10/18/22 12:00 Pulse Ox 98 10/18/22 12:00 FiO2 Intake & Output 10/17/22 10/18/22 10/18/22 18:59 06:59 18:59 Intake Total 430.167 120 Output Total 450 0 Balance -19.833 120 0 Weight 115.666 kg 119.3 kg Intake: IV 400 Sodium Chloride 0.9% 1, 400 000 ml In Empty Bag 1 bag @ 50 mls/hr IV .Q20H MIREYA Rx#:[id number] Intake, IV Titration 30.167 Amount Heparin Sod,Pork in 0.45% 30.167 NaCl 25,000 unit In 0.45 % NaCl 1 250ml.bag @ 8. 6456 UNITS/KG/HR 10 mls/ hr IV .Q24H MIREYA Rx#: [id number] Oral 120 Output: Urine 450 0 Other: Voiding Method Toilet Toilet Toilet Urinal Urinal # Voids 0 0 0 - Exam General: [Patient awake, alert and oriented times 3. Patient in no acute distress.] HEENT: [PERRL. EOMI. No pharyngeal erythema or exudate.] Neck: [No adenopathy.] Cardiac: [Heart regular in rate and rhythm. No S3. No S4. No clicks, rubs. No murmur.] Lungs: [Clear to auscultation bilaterally.] Abdomen: [No mass. No organomegaly. Bowel sounds presnt and normoactive in all 4 quadrants.] Extremes: [No edema no cyanosis no claudication normal pulses] : Normal male genitalia Musculoskeletal: [No joint erythema, edema or tenderness.] Skin: [No rash.] Neurologic: [No lateralizing deficits. CN II - XII grossly intact.] Lymphatic: [No adenopathy.] - Labs CBC & Chem 7: 10/18/22 05:45 10/18/22 05:45 Labs: Abnormal Lab Results - Last 24 Hours (Table) 10/18/22 10/18/22 10/18/22 Range/Units 05:45 05:45 05:45 WBC 12.2 H (3.8-10.6) k/uL Sodium 136 L (137-145) mmol/L Glucose 102 H (74-99) mg/dL Triglycerides 1079.00 H (0.00-149.00) mg/dL Cholesterol 270.00 H (0.00-200.00) mg/dL VLDL Cholesterol, Calc 215.80 H (5.00-40.00) mg/dL HDL Cholesterol 39.00 L (40.00-60.00) mg/dL Assessment and Plan (1) Chest pain Current Visit: Yes Status: Acute Code(s): R07.9 - CHEST PAIN, UNSPECIFIED SNOMED Code(s): 14711868 (2) ST elevation myocardial infarction (STEMI) Current Visit: Yes Status: Acute Code(s): I21.3 - ST ELEVATION (STEMI) MYOCARDIAL INFARCTION OF UNSP SITE SNOMED Code(s): 34918469 (3) Lipoma of scalp Current Visit: No Status: Acute Code(s): D17.0 - HILARY LIPOMATOUS NEOPLM OF SKIN, SUBCU OF HEAD, FACE AND NECK SNOMED Code(s): 33796956 Plan: Patient admitted to the hospital When directly to the cardiac Cotton Buyer Underwent percutaneous angioplasty with drug-eluting stent placement In the intensive care unit recovering well We'll reevaluate in the morning Time with Patient: Greater than 30
[2022-10-18] MEDS: buPROPion XL 150 MG TAB.ER.24H PO SCH (14:45)
[2022-10-18] MEDS: clonazePAM 0.5 MG TAB PO PRN (20:20)
[2022-10-18] MEDS: SODIUM CHLORIDE 0.9% 1,000 ML in EMPTY BAG 1 BAG IV SCH (21:16)
[2022-10-19 06:51] LABS: Platelet Count 217 k/uL (150-450)
[2022-10-19 07:11] LABS: African American GFR (CKD) >90 (>60 ml/min/1.73 sqM); Anion Gap 6 mmol/L; Blood Urea Nitrogen 13 mg/dL (9-20); Calcium 8.5 mg/dL (8.4-10.2); Carbon Dioxide 24 mmol/L (22-30); Chloride 107 mmol/L (98-107); Glucose 96 mg/dL (74-99); Non-African American GFR(CKD) >90 (>60 ml/min/1.73 sqM); Potassium 4.2 mmol/L (3.5-5.1); Sodium 137 mmol/L (137-145)
[2022-10-19] MEDS: ATORVASTATIN 80 MG TAB PO SCH (08:18)
[2022-10-19] MEDS: METOPROLOL SUCCINATE (ER) 50 MG TAB.ER.24H PO SCH (08:18)
[2022-10-19] MEDS: buPROPion XL 150 MG TAB.ER.24H PO SCH (08:18)
[2022-10-19] MEDS: LOSARTAN 50 MG TAB PO SCH (08:18)
[2022-10-19] MEDS: ISOSORBIDE MONONITRATE ER 30 MG TAB.ER.24H PO SCH (08:18)
[2022-10-19] MEDS: ASPIRIN 81 MG PO SCH (08:18)
[2022-10-19] MEDS ORDERED: ISOSORBIDE MONONITRATE ER 30 MG TAB.ER.24H PO SCH (09:00)
[2022-10-19] MEDS: PRASUGREL 10 MG TAB PO SCH (09:30)
[2022-10-19] MEDS: FENOFIBRATE 54 MG TAB PO SCH (09:30)
[2022-10-19] MEDS: HYDROcodone/APAP 5-325MG 1 EACH TAB PO PRN ×2 (11:17→20:36)
--- NOTE | 2022-10-19 12:39 | P.PN ---
Subjective Progress Note Date: 10/19/22 History of present illness: This is a 47-year-old male presented to the hospital with acute anterior wall myocardial infarctions status post emergent cardiac catheterization and angioplasty of the LADwith Dr. Moss on 10/17. He is currently on aspirin, Lipitor, Cozaar, Toprol-XL, Effient and Imdur was started yesterday. Yesterday, patient was complaining of sharp atypical chest discomfort but denies any today. He denies shortness of breath. Echocardiogram revealed normal LV systolic function with EF of 55%. Triglycerides 1079, cholesterol 270, HDL 39. Potassium 4.2, BUN 13 and creatinine 0.92. 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 Echocardiogram revealed EF of 55%. Physical examination: Gen: This is a 47-year-old male. He is resting in bed and appears to be comfortable and in no acute distress VS: reviewed HEENT: Head is atraumatic, normocephalic. Pupils equal, round. Sclerae is anicteric. NECK: Supple. No JVD. No lymphadenopathy. No thyromegaly. LUNGS: Clear to auscultation. No wheezes or rhonchi. No intercostal retractions. HEART: Regular rate and rhythm. No murmur. ABDOMEN: Soft. Bowel sounds are present. No masses. No tenderness. EXTREMITIES: No pedal edema. No calf tenderness. NEUROLOGICAL: Patient is awake, alert and oriented x3. Cranial nerves 2 through 12 are grossly intact. Assessment: Acute anterior wall myocardial infarction status post cardiac catheterization and angioplasty of the LAD 10/17 Hypertension Severe hypertriglyceridemia Plan: Start patient on fenofibrate 54 mg daily Continue atorvastatin, aspirin, Imdur, Toprol-XL increased to 50 mg daily and continue patient on Effient Nurse practitioner note has been reviewed, I agree with documented findings and plan of care. Patient was seen and examined. Objective - Vital Signs Vital signs: Vital Signs Temp 99.6 F 10/19/22 04:00 Pulse 96 10/19/22 04:00 Resp 16 10/19/22 04:00 BP 132/87 10/19/22 04:00 Pulse Ox 96 10/19/22 04:00 FiO2 Intake & Output 10/18/22 10/19/22 10/19/22 18:59 06:59 18:59 Intake Total 240 Output Total 0 0 Balance 0 240 Intake: Oral 240 Output: Urine 0 0 Other: Voiding Method Toilet Toilet # Voids 0 0 - Labs CBC & Chem 7: 10/19/22 06:00 10/19/22 06:00 Labs: Abnormal Lab Results - Last 24 Hours (Table) 10/18/22 Range/Units 05:45 Triglycerides 1079.00 H (0.00-149.00) mg/dL Cholesterol 270.00 H (0.00-200.00) mg/dL VLDL Cholesterol, Calc 215.80 H (5.00-40.00) mg/dL HDL Cholesterol 39.00 L (40.00-60.00) mg/dL
--- NOTE | 2022-10-19 14:13 | P.PN ---
Subjective Progress Note Date: 10/19/22 This is a 47-year-old gentleman with acute anterior wall STEMI status post emergent cardiac catheterization, PTCA with PCI of LAD. Patient complained of chest pain yesterday. Imdur and Effient added to med regimen. Denies chest pain, palpitations or shortness of breath this morning. Ambulating with in room, tolerating exertion well. Hypertensive mild tachycardia this morning. Telemetry sinus rhythm with mild tachycardia. Beta simone dose increased. Triglycerides 1079 (hemoglobin A1c ordered), cholesterol 270, LDL 96.7, HDL 39. Maintaining O2 sats in the 90s on room air. Objective - Vital Signs Vital signs: Vital Signs Temp 98.5 F 10/19/22 08:23 Pulse 103 H 10/19/22 08:23 Resp 18 10/19/22 08:23 BP 167/109 10/19/22 08:23 Pulse Ox 94 L 10/19/22 08:23 FiO2 Intake & Output 10/18/22 10/19/22 10/19/22 18:59 06:59 18:59 Intake Total 240 0 Output Total 0 0 Balance 0 240 0 Intake: Oral 240 0 Output: Urine 0 0 Other: Voiding Method Toilet Toilet Toilet # Voids 0 0 - Exam PHYSICAL EXAM: VITAL SIGNS: [As above] GENERAL: Alert and oriented 3, Sitting up in bed, no acute distress HEENT: Conjunctivae normal. eyes normal. NECK: Supple, No JVD. CARDIOVASCULAR: S1, S2 regular. No murmur. RESPIRATION: Unlabored, CTA,Breath sounds diminished in the bases. ABDOMEN: Soft, nondistended, nontender . No guarding. no masses palpable.Positive bowel sounds. LEGS: No edema. no swelling NERVOUS SYSTEM: Cranial N 2-12 grossly normal. No focal deficits. Strength and sensation grossly intact. Skin: Warm and dry, no rash. - Labs CBC & Chem 7: 10/19/22 06:00 10/19/22 06:00 Assessment and Plan Assessment: (1) Chest pain, Acute anterior ST elevation myocardial infarction (STEMI) status post cardiac cath., stenting of the LAD. Current Visit: Yes Status: Acute Code(s): I21.3 - ST ELEVATION (STEMI) MYOCARDIAL INFARCTION OF [facility] SITE SNOMED Code(s): 46776505 (2)hypertriglyceridemia, severe, 1079. hemoglobin A1c pending. (3) hypercholesterolemia (4) morbid obesity 38.8 (5) obstructive sleep apnea, uses CPAP (6) nicotine dependence, 1 pack per day 20 years (7) Lipoma of scalp Current Visit: No Status: Acute Code(s): D17.0 - HILARY LIPOMATOUS NEOPLM OF SKIN, SUBCU OF HEAD, FACE AND NECK SNOMED Code(s): 19146568 Plan: Continue on current medication regime ,monitoring and symptomatic treatment. Severe hypertriglyceridemia, and hemoglobin A1c ordered.Continues on beta simone, statin, aspirin, Imdur, Effient. Beta simone dose increased, close monitoring of HR. Lofibra added to med regimine. Increase ambulation as tolerated. Smoking sensation reinforced. Discharge planning in progress for tomorrow pending final DC recommendations and clearance prior cardiology. The impression and plan of care has been dictated as directed. : I performed a history and examination of this patient, discussed the same with the dictator. I agree with the dictator's note ,documented as a scribe. Any additional findings or plans will be noted.
[2022-10-19] MEDS: SODIUM CHLORIDE 0.9% 1,000 ML in EMPTY BAG 1 BAG IV SCH (16:46)
[2022-10-19 19:45] VITALS: RESP 16
[2022-10-19] MEDS: clonazePAM 0.5 MG TAB PO PRN (20:37)
[2022-10-20] MEDS: FENOFIBRATE 54 MG TAB PO SCH (08:09)
[2022-10-20] MEDS: METOPROLOL SUCCINATE (ER) 50 MG TAB.ER.24H PO SCH (08:09)
[2022-10-20] MEDS: ATORVASTATIN 80 MG TAB PO SCH (08:09)
[2022-10-20] MEDS: ASPIRIN 81 MG PO SCH (08:10)
[2022-10-20] MEDS: ISOSORBIDE MONONITRATE ER 30 MG TAB.ER.24H PO SCH (08:10)
[2022-10-20] MEDS: LOSARTAN 50 MG TAB PO SCH (08:10)
[2022-10-20] MEDS: PRASUGREL 10 MG TAB PO SCH (08:10)
[2022-10-20] MEDS: buPROPion XL 150 MG TAB.ER.24H PO SCH (08:10)
[2022-10-20 08:13] VITALS: BP 138/95; PULSE 97; TEMP 98.5
[2022-10-20] MEDS ORDERED: METOPROLOL SUCCINATE (ER) 50 MG TAB.ER.24H PO STA (08:36)
--- NOTE | 2022-10-20 10:33 | P.PN ---
Subjective Progress Note Date: 10/20/22 History of present illness: This is a 47-year-old male presented to the hospital with acute anterior wall myocardial infarctions status post emergent cardiac catheterization and angioplasty of the LADwith Dr. Moss on 10/17. He is currently on aspirin, Lipitor, Cozaar, Toprol-XL, Effient and Imdur was started yesterday. Yesterday, patient was complaining of sharp atypical chest discomfort but denies any today. He denies shortness of breath. Echocardiogram revealed normal LV systolic function with EF of 55%. Triglycerides 1079, cholesterol 270, HDL 39. Potassium 4.2, BUN 13 and creatinine 0.92. 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 Echocardiogram revealed EF of 55%. 10/20 Patient denies any chest pain or shortness of breath. His heart rate is running in the 90s. Telemetry sinus rhythm. Blood pressure 138/95. Potassium 4.2, BUN 13 and creatinine 0.92. Physical examination: Gen: This is a 47-year-old male. He is resting in bed and appears to be comfortable and in no acute distress VS: reviewed HEENT: Head is atraumatic, normocephalic. Pupils equal, round. Sclerae is anicteric. NECK: Supple. No JVD. No lymphadenopathy. No thyromegaly. LUNGS: Clear to auscultation. No wheezes or rhonchi. No intercostal retractions. HEART: Regular rate and rhythm. No murmur. ABDOMEN: Soft. Bowel sounds are present. No masses. No tenderness. EXTREMITIES: No pedal edema. No calf tenderness. NEUROLOGICAL: Patient is awake, alert and oriented x3. Cranial nerves 2 through 12 are grossly intact. Assessment: Acute anterior wall myocardial infarction status post cardiac catheterization and angioplasty of the LAD 10/17 Hypertension Severe hypertriglyceridemia Plan: Continue patient on fenofibrate 54 mg daily Continue atorvastatin, aspirin, Imdur, Effient Toprol-XL will be increased to 100 mg daily Patient is cleared for discharge from cardiology. Patient will follow-up with Dr. Moss in 1-2 weeks. Nurse practitioner note has been reviewed, I agree with documented findings and plan of care. Patient was seen and examined. Objective - Vital Signs Vital signs: Vital Signs Temp 98.5 F 10/20/22 08:12 Pulse 97 10/20/22 08:12 Resp 16 10/20/22 08:12 BP 138/95 10/20/22 08:12 Pulse Ox 95 10/20/22 08:12 FiO2 Intake & Output 10/19/22 10/20/22 10/20/22 18:59 06:59 18:59 Intake Total 236 Balance 236 Intake: Oral 236 Other: Voiding Method Toilet Toilet # Voids 2 2 - Labs CBC & Chem 7: 10/19/22 06:00 10/19/22 06:00
[2022-10-20] MEDS: HYDROcodone/APAP 5-325MG 1 EACH TAB PO PRN (11:00)
--- NOTE | 2022-10-20 13:19 | P.DS ---
Providers Date of admission: 10/17/22 04:19 Expected date of discharge: 10/20/22 Attending physician: Jean Carlos Acosta Consults: 10/17/22 04:19 Consult Physician Urgent Consulting Provider: Leticia Poole Consult Reason/Comments: stemi Do you want consulting provider notified?: Yes 10/17/22 05:53 Consult Physician Routine Consulting Provider: [facility] Consult Reason/Comments: Post Interventional Patient Do you want consulting provider notified?: Already Contacted Primary care physician: [facility] Course: Final Diagnoses: (1) acute anterior wall DC status post cardiac catheterization, stenting of LAD (2)hypertriglyceridemia, severe, 1079. hemoglobin A1c 5.9 (3) hypercholesterolemia (4) morbid obesity 38.8 (5) obstructive sleep apnea, uses CPAP (6) nicotine dependence, 1 pack per day 20 years (7) lipoma of scalp Hospital course:This is a 47-year-old gentleman with acute anterior wall STEMI status post emergent cardiac catheterization, PTCA with PCI of LAD. Patient complained of chest pain yesterday. Imdur and Effient added to med regimen. Denies chest pain, palpitations or shortness of breath this morning. Ambulating with in room, tolerating exertion well. Hypertensive mild tachycardia this morning. Telemetry sinus rhythm with mild tachycardia. Beta simone dose increased. Triglycerides 1079 (hemoglobin A1c ordered), cholesterol 270, LDL 96.7, HDL 39. Maintaining O2 sats in the 90s on room air. Significant clinical improvement. Denies any chest pain, palpitations or shortness of breath. Telemetry reporting sinus rhythm in the 90s on increased dose of beta simone. BUN 13/10 and 0.92. Hemoglobin A1c is 5.9. Cleared by cardiology for discharge. Patient will be discharged home today in stable condi tion with guarded prognosis. The impression and plan of care has been dictated as directed. : I performed a history and examination of this patient, discussed the same with the dictator. I agree with the dictator's note ,documented as a scribe. Any additional findings or plans will be noted. Patient Condition at Discharge: Stable Plan - Discharge Summary Discharge Rx Participant: No New Discharge Prescriptions: New Atorvastatin [Lipitor] 80 mg PO DAILY #30 tab Nitroglycerin Sl Tabs [Nitrostat] 0.4 mg SUBLINGUAL Q5M PRN #25 tab PRN Reason: Chest Pain Prasugrel [Effient] 10 mg PO DAILY #30 tab Isosorbide Mononitrate ER [Imdur] 30 mg PO DAILY #30 tab Fenofibrate [Lofibra] 54 mg PO DAILY #30 tab Metoprolol Succinate (ER) [Toprol XL] 100 mg PO DAILY #30 tab Continue clonazePAM [KlonoPIN] 0.5 mg PO HS PRN PRN Reason: Anxiety Albuterol Sulfate [Ventolin HFA] 1 puff INHALATION RT-Q4H PRN PRN Reason: Shortness Of Breath Aspirin EC [Ecotrin Low Dose] 81 mg PO DAILY buPROPion XL [Wellbutrin XL] 150 mg PO DAILY Losartan Potassium 50 mg PO DAILY Discontinued amLODIPine [Norvasc] 5 mg PO DAILY Discharge Medication List Albuterol Sulfate [Ventolin HFA] 1 puff INHALATION RT-Q4H PRN 10/17/22 [History] Aspirin EC [Ecotrin Low Dose] 81 mg PO DAILY 10/17/22 [History] Losartan Potassium 50 mg PO DAILY 10/17/22 [History] buPROPion XL [Wellbutrin XL] 150 mg PO DAILY 10/17/22 [History] clonazePAM [KlonoPIN] 0.5 mg PO HS PRN 10/17/22 [History] Atorvastatin [Lipitor] 80 mg PO DAILY #30 tab 10/20/22 [Rx] Fenofibrate [Lofibra] 54 mg PO DAILY #30 tab 10/20/22 [Rx] Isosorbide Mononitrate ER [Imdur] 30 mg PO DAILY #30 tab 10/20/22 [Rx] Metoprolol Succinate (ER) [Toprol XL] 100 mg PO DAILY #30 tab 10/20/22 [Rx] Nitroglycerin Sl Tabs [Nitrostat] 0.4 mg SUBLINGUAL Q5M PRN #25 tab 10/20/22 [Rx] Prasugrel [Effient] 10 mg PO DAILY #30 tab 10/20/22 [Rx] Follow up Appointment(s)/Referral(s): Jean Carlos Acosta Jr, DO [Primary Care Provider] - 10/21/22 11:00 am Juan Carlos Moss DO [STAFF PHYSICIAN] - 1 Week (Office will call you to set up an appointment) Patient Instructions/Handouts: Heart Attack (DC) Discharge Disposition: HOME SELF-CARE
[2022-10-21] MEDS ORDERED: METOPROLOL SUCCINATE (ER) 100 MG TAB.ER.24H PO SCH (09:00)
== END 2022-10-20 12:30 | disposition home or self-care (01) | DRG 247 ==
LOC: EC 03:58 → 2SICU 04:19 → 3SCARD 10-18 22:41
PROVIDERS: ADMIT Family Medicine; ATTEND Family Medicine
PROC: B2111ZZ Fluoroscopy of Multiple Coronary Arteries using Low Osmolar Contrast (ICD-10-PCS; 2022-10-17)
PROC: 027035Z Dilation of Coronary Artery, One Artery with Two Drug-eluting Intraluminal Devices, Percutaneous Approach (ICD-10-PCS; principal; 2022-10-17 04:44)
PROC: 4A023N7 Measurement of Cardiac Sampling and Pressure, Left Heart, Percutaneous Approach (ICD-10-PCS; 2022-10-17 04:44)
DX: I21.09 ST elevation (STEMI) myocardial infarction involving other coronary artery of anterior wall (principal); E66.01 Morbid (severe) obesity due to excess calories; I10 Essential (primary) hypertension; E78.1 Pure hyperglyceridemia; D17.9 Benign lipomatous neoplasm, unspecified; J45.909 Unspecified asthma, uncomplicated; K21.9 Gastro-esophageal reflux disease without esophagitis; E78.00 Pure hypercholesterolemia, unspecified; I25.2 Old myocardial infarction; G47.33 Obstructive sleep apnea (adult) (pediatric); F17.210 Nicotine dependence, cigarettes, uncomplicated; M19.90 Unspecified osteoarthritis, unspecified site; R00.0 Tachycardia, unspecified; F41.9 Anxiety disorder, unspecified; Z68.38 Body mass index [BMI] 38.0-38.9, adult; Z79.82 Long term (current) use of aspirin; Z79.899 Other long term (current) drug therapy; Z82.49 Family history of ischemic heart disease and other diseases of the circulatory system; Z71.6 Tobacco abuse counseling
CPT/HCPCS: 36415; 71045; 80048; 80053; 80061; 83036; 83690; 83721; 83735; 83880; 84484; 85025; 85027; 85049; 85610; 85730; 93005; 93306; 93458

== ENCOUNTER → 2023-10-20 | Outpatient (CLI) | payer OTHER ==
[2023-10-20 15:08] LABS: ALT 25 U/L (10-49); AST 17 U/L (14-35); Chol/HDL Ratio 3.03 Ratio; LDL Cholesterol,Calculated 51.8 mg/dL (0.0-131.0)
== END | disposition home or self-care (01) ==
LOC: LABWHC1 09:16
PROVIDERS: ATTEND Internal Medicine
DX: E78.2 Mixed hyperlipidemia (principal)
CPT/HCPCS: 36415; 80061; 84450; 84460

== ENCOUNTER → 2024-10-12 | Outpatient (CLI) | payer OTHER ==
[2024-10-12 15:21] LABS: ALT 33 U/L (10-49); AST 22 U/L (14-35); LDL Cholesterol,Calculated 58.6 mg/dL (0.0-131.0)
== END | disposition home or self-care (01) ==
LOC: LABWHC1 08:35
PROVIDERS: ATTEND Internal Medicine
DX: E78.2 Mixed hyperlipidemia (principal)
CPT/HCPCS: 36415; 80061; 84450; 84460

== ENCOUNTER → 2024-10-25 | Outpatient (CLI) | payer OTHER ==
[2024-10-25 19:15] LABS: Blood Urea Nitrogen 13.5 mg/dL (9.0-27.0); Carbon Dioxide 27.3 mmol/L (21.6-31.8); Chloride 107 mmol/L (96-109); Potassium 4.2 mmol/L (3.5-5.5); Sodium 144 mmol/L (135-145)
[2024-10-25 19:54] LABS: HCT 42.8 % (39.6-50.0); HGB 14.2 g/dL (13.0-17.0); MCHC 33.2 g/dL (32.0-37.0); MCV 90.5 FL (80.0-97.0); Mean Platelet Volume 10.7 FL (9.5-12.2); NRBC Per 100 WBC 0 X 10*3/uL (0.00-0.01); Platelet Count 313 X 10*3/uL (140-440); RBC 4.73 X 10*6/uL (4.40-5.60); RDW 11.9 % (11.5-14.5); WBC 9.19 X 10*3/uL (4.50-10.00)
== END | disposition home or self-care (01) ==
LOC: LABWHC1 15:33
PROVIDERS: ATTEND Internal Medicine
DX: Z01.812 Encounter for preprocedural laboratory examination (principal); R94.39 Abnormal result of other cardiovascular function study
CPT/HCPCS: 80051; 82565; 84520; 85027

== ENCOUNTER 2024-11-01 06:18 | Day surgery (SDC) | payer OTHER ==
[2024-11-01] MEDS ORDERED: ALPRAZolam 0.25 MG TAB PO PRN (06:23)
[2024-11-01] MEDS ORDERED: SODIUM CHLORIDE 0.9% 1,000 ML in EMPTY BAG 1 BAG IV ONE (06:23)
[2024-11-01] MEDS ORDERED: NITROGLYCERIN SL TABS 0.4 MG TAB SUBLINGUAL PRN (06:23)
[2024-11-01] MEDS: IV FLUID CONTINUATION 1,000 ML IV ONE (06:47)
[2024-11-01 06:59] VITALS: TEMP 98
[2024-11-01] MEDS ORDERED: HEPARIN SODIUM,PORCINE (1 ML) 2,500 UNIT in SODIUM CHLORIDE 0.9% 250 ML IRRIGATION PRN (07:00)
[2024-11-01] MEDS ORDERED: HEPARIN SODIUM,PORCINE 10,000 UNIT in SODIUM CHLORIDE 0.9% 1,000 ML IRRIGATION PRN (07:00)
[2024-11-01] MEDS: ALPRAZolam 0.5 MG TAB PO PRN (07:10)
[2024-11-01] MEDS: ATORVASTATIN 80 MG TAB PO ONE (07:20)
[2024-11-01] MEDS: ASPIRIN 325 MG TAB PO ONE (07:20)
[2024-11-01] MEDS: MIDAZOLAM 2 MG/2 ML VIAL IVP ONE (07:35)
[2024-11-01] MEDS: fentaNYL (PF) 50 MCG/ML 2 ML AMP IVP ONE (07:35)
[2024-11-01] MEDS: LIDOCAINE 1% INJ 10MG/ML (20 ML MDV) SQ ONE (07:36)
[2024-11-01] MEDS: VERAPAMIL SYRINGE (5 MG/10 ML) INTRAARTER ONE (07:38)
[2024-11-01] MEDS: HEPARIN SODIUM 1,000 UN/ML (10ML VL) IV ONE (07:42)
[2024-11-01] MEDS: IOPAMIDOL-370 100ML BTL INJ ONE (07:52)
--- NOTE | 2024-11-01 09:07 | P.CARDCATH ---
Description of Procedure: PROCEDURES PERFORMED: Left heart catheterization, bilateral coronary angiography, ultrasound guided arterial access INDICATION: abnormal stress test with inferior ischemia and fixed anterior defect CONSENT:The risks, benefits and alternative therapies for the above-mentioned procedure and for both sedation/analgesia as well as necessary blood product administration, if indicated, as they pertain to this patient were discussed with the patient. The patient has indicated understanding and acceptance of the risks and procedures discussed. PROCEDURE: After the risks, benefits and alternatives of the above mentioned procedure explained in detail with the patient, informed consent was obtained. Patient was taken to the catheterization lab and prepped and draped in usual fashion. Ultrasound guidance was used to assess for arterial access. 1% lidocaine was used to anesthetize the right radial artery. A 6-British sheath was placed in the right radial artery using modified Seldinger technique and ultrasound guidance. Left coronary angiography was performed with a 5-British JL 3.5 catheter and right coronary angiography was performed with a 5-British FR5 catheter in various views. A 5-British FR5 catheter was inserted into the left ventricle and pressure measurements were obtained. The right radial sheath was removed and a TR band was placed with hemostasis achieved. The patient tolerated the procedure well. Patient was transported back to the post catheterization holding area in stable condition. Conscious Sedation: Patient was monitored under the direct supervision of myself for conscious sedation using Versed and fentanyl for a total duration of 13 minutes HEMODYNAMICS: Ao: 138/85 LV: 135/4, LVEPD 8 SELECTIVE CORONARY ARTERIOGRAPHY: LEFT MAIN: The left main is a large caliber vessel which bifurcates into the LAD and circumflex. There is no significant stenosis. LEFT ANTERIOR DESCENDING CORONARY ARTERY: LAD is a large caliber vessel which wraps around to the apex. There is a patent proximal LAD stent at the area of a diagonal 1 branch. There is 10-20% proximal and mid LAD stenosis. Diagonal 1 has a 40-50% proximal stenosis. The mid to distal LAD is small caliber and there is 100% stenosis of the prior distal LAD stent which appears small caliber. There are left to left collaterals. LEFT CIRCUMFLEX CORONARY ARTERY: Left circumflex is a moderate caliber vessel with mild luminal irregularities RIGHT CORONARY ARTERY: The right coronary artery is a large caliber vessel which gives off a PDA and PLV branch and is the dominant vessel. There are mild luminal irregularities with 10-20% RCA stenosis. FINAL IMPRESSION: 1. Stable CAD with 10-20% LAD, 10-20% RCA disease however 100% stenosis at the site of prior small caliber distal LAD stent 2. Normal left sided filling pressures PLAN: 1. Aggressive risk factor modification per most recent ACC/AHA guidelines. 2. Patient with left to left collaterals and distal small caliber RN PLASTICS LAD at site of prior stent. Additionally stress test showing concern of infarct in this area and unclear if viable. Therefore continue with medical therapy.
[2024-11-01 11:26] VITALS: BP 121/72; PULSE 85; RESP 1
[2024-11-02] MEDS ORDERED: HYDROmorphone 0.5 MG/0.5 ML SYRINGE IVP PRN (07:00)
== END 2024-11-01 11:25 | disposition home or self-care (01) ==
LOC: CATHCVL 06:18
PROVIDERS: ATTEND Internal Medicine
DX: I25.10 Atherosclerotic heart disease of native coronary artery without angina pectoris (principal); I10 Essential (primary) hypertension; E78.1 Pure hyperglyceridemia; F17.210 Nicotine dependence, cigarettes, uncomplicated; F10.99 Alcohol use, unspecified with unspecified alcohol-induced disorder; Z95.5 Presence of coronary angioplasty implant and graft; Z79.82 Long term (current) use of aspirin; Z79.02 Long term (current) use of antithrombotics/antiplatelets; Z79.899 Other long term (current) drug therapy
CPT/HCPCS: 93458; 99152; C1769; C1894; J2250; J2003; J3010; J1644; Q9967